=== PATIENT | female | born 1930 | race Caucasian/White ===

== ENCOUNTER 2019-03-26 10:51 | Inpatient (IN) | payer MEDICAID, MEDICARE, OTHER ==
[~2019-03-26] VITALS: Ht 165.1 cm; Wt 68.0 kg
[~2019-03-26 10:51] MED LIST: ACET325T9 PO; ACET600C3 PO; ASPI325T8 PO; BACL10TA PO; BISA10SU2 RC; CIPR500T94 PO; CLON1PAT TD; DABI150C PO; DIAZ5TAB4 PO; FURO-69 PO; GABA300C18 PO; GLIP5TAB10 PO; HYDR-2761 PO; INSU100C4 SQ; IPRA3AMP29 IH; LISI-338 PO; MAG1TAB.11 PO; MAGN400O7 PO; PANT40TA5 PO; POTA10TA31 PO; PRAV40TA2 PO; PRED-220 PO; SERT50TA8 PO; TRAM50TA PO
--- NOTE | 2019-03-26 12:03 | RAD ---
CT of the pelvis without contrast, 03/26/2019: HISTORY: Right hip pain, contractures limit radiographic evaluation Noncontrast scans were obtained with multiplanar reconstructions produced. The patient's left hip is contracted in a flexed position. There is mild associated lateral subluxation of the left femoral head relative to the left acetabulum, presumably chronic. No acute fracture is identified. There are moderate degenerative changes at both hip joints. There are also moderate degenerative changes in the lower lumbar spine and at both sacroiliac joints. Scattered arterial calcifications are present. The pelvic bowel loops are unremarkable. No pelvic mass or unusual fluid collection is seen. Minimal radiopacity along the dependent wall the urinary bladder may represent tiny bladder calculi. There is moderate bilateral subcutaneous edema. IMPRESSION: 1. Chronic findings as described above. 2. No acute bony abnormality is detected. PQRS Compliance Statement: One or more of the following individualized dose reduction techniques were utilized for this examination: 1. Automated exposure control 2. Adjustment of the mA and/or kV according to patient size 3. Use of iterative reconstruction technique Electronically signed by: Zac Montano MD (03/26/2019 12:00 PM) [facility]
--- NOTE | 2019-03-26 12:06 | RAD ---
Right knee, 3 views, 03/26/2019: HISTORY: Pain The imaging is compromised by difficulties in patient positioning. There is severe bony demineralization. There is a comminuted fracture of the distal femoral shaft. There is mild medial displacement and posterior angulation of the major distal fracture fragment. Degenerative changes are present the knee joint. Extensive arterial calcifications are present. IMPRESSION: 1. Demineralization. 2. Mildly displaced and angulated distal femoral fracture. Electronically signed by: Zac Montano MD (03/26/2019 12:04 PM) [facility]
--- NOTE | 2019-03-26 12:38 | RAD ---
CHEST AP ONLY Clinical Indication: Perioperative evaluation. Comparison: None. Findings: Patient is rotated. Atherosclerotic and tortuous, possibly ectatic thoracic aorta. There is cardiomegaly. No pulmonary vascular congestion. Lungs are clear. Mild biapical pleural parenchymal scarring. There is no pneumothorax. No pleural effusion is appreciated. No acute bone abnormality. IMPRESSION: No acute cardiopulmonary process. Electronically signed by: Eber Kirk MD (03/26/2019 12:35 PM) [id number]
--- NOTE | 2019-03-26 13:04 | PDOC1 ---
History and Physical Date of Admission Date of Admission DATE: 03/26/19 TIME: 13:03 Identification/Chief Complaint Chief Complaint Patient is a 88 year old FEMALE who presents with LEG PAIN [] Past Medical History Past Medical History Past Medical History Past Medical History Past Medical History: Anxiety, Depression, Diabetes-Type II, Hypertension Past Surgical History: Other Additional Past Surgical Histo: unknown Alcohol Use: None Drug Use: None FHX DIABETES Current Medications Current Medications Active Scripts Active Reported Tramadol Hcl 50 Mg Tablet 1 Tab PO TID Sertraline Hcl 50 Mg Tablet 150 Mg PO HS Prednisone 10 Mg Tablet 10 Mg PO DAILY Pravastatin Sodium 40 Mg Tablet 1 Tab PO DAILY Potassium Chloride 10 Meq Tab.er.prt 0.5 Tab PO DAILY Pantoprazole Sodium 40 Mg Tablet.dr 1 Tab PO DAILY Mintox Plus Tablet Chewable (Mag Hydrox/Al Hydrox/Simeth) 1 Each Tab.chew 2 Each PO Milk Of Magnesia (Magnesium Hydroxide) 400 Mg/5 Ml Oral.susp 30 Mg PO DAILY PRN Lisinopril 5 Mg Tablet 1 Tab PO DAILY Lasix (Furosemide) 20 Mg Tablet 0.5 Tab PO DAILY Novolog (Insulin Aspart) 100 Unit/1 Ml Cartridge 2-8 Unit SQ TIDWMEALHC Hydrocodone-Apap 5-325 (Hydrocodone Bit/Acetaminophen) 1 Each Tablet 1 Tab PO Q8HRS PRN Glipizide 5 Mg Tablet 1 Tab PO BID Gabapentin 300 Mg Capsule 1 Cap PO TID Iprat-Albut 0.5-3(2.5) Mg/3 Ml (Ipratropium/Albuterol Sulfate) 3 Ml Ampul.neb 3 Ml IH Q8HRS PRN Diazepam 5 Mg Tablet 2.5 Mg PO HS Pradaxa (Dabigatran Etexilate Mesylate) 150 Mg Capsule 1 Cap PO BID Clonidine Tts-1 (Clonidine) 1 Each Patch.tdwk 1 Patch TD WEEKLY Cipro (Ciprofloxacin Hcl) 500 Mg Tablet 1 Tab PO BID Bisacodyl 10 Mg Supp.rect 10 Mg RC PRN DAILY PRN Baclofen 10 Mg Tablet 1 Tab PO TID Aspirin 325 Mg Tablet 1 Tab PO DAILY F-Fmymkf-Z-Cysteine (Acetylcysteine) 600 Mg Capsule 1,200 Mg PO BID Tylenol (Acetaminophen) 325 Mg Tablet 1-2 Tab PO QID PRN Allergies Allergies: Coded Allergies: No Known Drug Allergies (Unverified , 03/10/15) ROS Review of System Review of Systems Review of Systems Constitutional: Denies fever or chills [] Eyes: Denies change in visual acuity, redness, or eye pain [] HENT: Denies nasal congestion or sore throat [] Respiratory: Denies cough or shortness of breath [] Cardiovascular: No additional information not addressed in HPI [] GI: Denies abdominal pain, nausea, vomiting, bloody stools or diarrhea [] : Denies dysuria or hematuria [] Musculoskeletal: Denies back pain or joint pain [] Integument: Denies rash or skin lesions [] Neurologic: Denies headache, focal weakness or sensory changes [] Endocrine: Denies polyuria or polydipsia [] 14 PT systems were reviewed and found to be within normal limits, LIMITED BY DEMENTIA , except as documented Physical Exam Physical Exam Physical Exam Physical Exam Constitutional: Well developed, well nourished, no acute distress, non-toxic appearance. [] HENT: Normocephalic, atraumatic, bilateral external ears normal, oropharynx moist, no oral exudates, nose normal. [] Eyes: PERRLA, EOMI, conjunctiva normal, no discharge. [] Neck: Normal range of motion, no tenderness, supple, no stridor. [] Cardiovascular:Heart rate regular rhythm, no murmur [] Lungs & Thorax: Bilateral breath sounds clear to auscultation [] Abdomen: Bowel sounds normal, soft, no tenderness, no masses, no pulsatile masses. [] Skin: Warm, dry, no erythema, no rash. [] Back: No tenderness, no CVA tenderness. [] Extremities: KNEE tenderness, no cyanosis, no clubbing, ROM intact, no edema. [] Neurologic: no focal deficits noted. [] Psychologic: A mood normal. [] General: mild distress HEENT: Atraumatic Lungs: Clear to auscultation Breasts: Not examined Rectal Exam: not examined Extremities: No cyanosis Neuro: Cranial nerves 3-12 NL Vitals Vitals Vital Signs Date Time Temp Pulse Resp B/P (MAP) Pulse Ox O2 Delivery O2 Flow Rate FiO2 03/26/19 11:02 97.9 55 16 191/77 (115) Room Air 94.0 97.9 Images Images Right knee, 3 views, 03/26/2019: HISTORY: Pain The imaging is compromised by difficulties in patient positioning. There is severe bony demineralization. There is a comminuted fracture of the distal femoral shaft. There is mild medial displacement and posterior angulation of the major distal fracture fragment. Degenerative changes are present the knee joint. Extensive arterial calcifications are present. IMPRESSION: 1. Demineralization. 2. Mildly displaced and angulated distal femoral fracture. Electronically signed by: Zac Montano MD (03/26/2019 12:04 PM) [facility] VTE Prophylaxis Ordered VTE Prophylaxis Devices: Yes VTE Pharmacological Prophylaxi: Yes Assessment/Plan Assessment/Plan IMPRESSION: 1. Demineralization. 2. Mildly displaced and angulated distal femoral fracture. PLAN ORTHO CONSULT PAIN CONTROL, BEDREST DVT PROPHYLAXIS NICOLASA FRANCO MD March 26, 2019 13:04
--- NOTE | 2019-03-26 13:06 | EKG ---
[facility] [address] [place] [address] Test Date: 2019-03-26 Test Time: 12:51:22 Pat Name: LAM BELL Department: Room: Gender: F Diversity Intern: : 1930 Requested By: PARUL TOUSSAINT Order Number: [id number] Reading MD: Measurements Intervals [place] Rate: 57 P: MT: QRS: 171 QRSD: 122 T: 28 QT: 456 QTc: 447 Interpretive Statements IRREGULAR RHYTHM, NO P-WAVE FOUND ABNORMAL RIGHT AXIS DEVIATION INCOMPLETE RIGHT BUNDLE BRANCH BLOCK CONSIDER RIGHT VENTRICULAR HYPERTROPHY T ABNORMALITY IN ANTEROSEPTAL LEADS ABNORMAL ECG RI6.01 Unconfirmed report No previous ECG available for comparison
--- NOTE | 2019-03-26 13:34 | PHYS DOC ---
Past Medical History Past Medical History: Anxiety, Depression, Diabetes-Type II, Hypertension Past Surgical History: Other Additional Past Surgical Histo: unknown Alcohol Use: None Drug Use: None Adult General Chief Complaint Chief Complaint: OTHER COMPLAINTS HPI HPI Patient is a 88 year old [f__sex] who presents with [] Review of Systems Review of Systems Constitutional: Denies fever or chills [] Eyes: Denies change in visual acuity, redness, or eye pain [] HENT: Denies nasal congestion or sore throat [] Respiratory: Denies cough or shortness of breath [] Cardiovascular: No additional information not addressed in HPI [] GI: Denies abdominal pain, nausea, vomiting, bloody stools or diarrhea [] : Denies dysuria or hematuria [] Musculoskeletal: Denies back pain or joint pain [] Integument: Denies rash or skin lesions [] Neurologic: Denies headache, focal weakness or sensory changes [] Endocrine: Denies polyuria or polydipsia [] All other systems were reviewed and found to be within normal limits, except as documented in this note. Current Medications Current Medications Current Medications Medications (Trade) Dose Ordered Sig/Dominik Start Time Stop Time Status Last Admin Dose Admin Dextrose (Dextrose 50%-Water Syringe) 12.5 gm PRN Q15MIN PRN 03/26/19 14:15 Fentanyl Citrate (Fentanyl 2ml Vial) 25 mcg PRN Q2HR PRN 03/26/19 13:45 Insulin Human Lispro (HumaLOG) 0-5 UNITS TIDWMEALS 03/26/19 17:00 Ondansetron HCl (Zofran) 4 mg PRN Q8HRS PRN 03/26/19 13:45 03/27/19 13:44 Allergies Allergies Allergies Coded Allergies Type Severity Reaction Last Updated Verified No Known Drug Allergies 03/10/15 No Physical Exam Physical Exam Constitutional: Well developed, well nourished, no acute distress, non-toxic appearance. [] HENT: Normocephalic, atraumatic, bilateral external ears normal, oropharynx moist, no oral exudates, nose normal. [] Eyes: PERRLA, EOMI, conjunctiva normal, no discharge. [] Neck: Normal range of motion, no tenderness, supple, no stridor. [] Cardiovascular:Heart rate regular rhythm, no murmur [] Lungs & Thorax: Bilateral breath sounds clear to auscultation [] Abdomen: Bowel sounds normal, soft, no tenderness, no masses, no pulsatile masses. [] Skin: Warm, dry, no erythema, no rash. [] Back: No tenderness, no CVA tenderness. [] Extremities: No tenderness, no cyanosis, no clubbing, ROM intact, no edema. [] Neurologic: Alert and oriented X 3, normal motor function, normal sensory function, no focal deficits noted. [] Psychologic: Affect normal, judgement normal, mood normal. [] Current Patient Data Vital Signs Vital Signs Date Time Temp Pulse Resp B/P (MAP) Pulse Ox O2 Delivery O2 Flow Rate FiO2 03/26/19 13:00 60 180/76 (110) 97 Room Air 03/26/19 11:02 97.9 16 94.0 97.9 Lab Values Laboratory Tests Test 03/26/19 13:30 White Blood Count 9.4 x10^3/uL (4.0-11.0) Red Blood Count 4.22 x10^6/uL (3.50-5.40) Hemoglobin 12.6 g/dL (12.0-15.5) Hematocrit 38.3 % (36.0-47.0) Mean Corpuscular Volume 91 fL (79-100) Mean Corpuscular Hemoglobin 30 pg (25-35) Mean Corpuscular Hemoglobin Concent 33 g/dL (31-37) Red Cell Distribution Width 16.8 % (11.5-14.5) H Platelet Count 130 x10^3/uL (140-400) L Neutrophils (%) (Auto) 87 % (31-73) H Lymphocytes (%) (Auto) 8 % (24-48) L Monocytes (%) (Auto) 3 % (0-9) Eosinophils (%) (Auto) 0 % (0-3) Basophils (%) (Auto) 1 % (0-3) Neutrophils # (Auto) 8.2 x10^3uL (1.8-7.7) H Lymphocytes # (Auto) 0.8 x10^3/uL (1.0-4.8) L Monocytes # (Auto) 0.3 x10^3/uL (0.0-1.1) Eosinophils # (Auto) 0.0 x10^3/uL (0.0-0.7) Basophils # (Auto) 0.0 x10^3/uL (0.0-0.2) Platelet Estimate Pending Prothrombin Time 14.3 SEC (11.7-14.0) H Prothrombin Time INR 1.1 (0.8-1.1) PTT 33 SEC (24-38) Sodium Level 142 mmol/L (136-145) Potassium Level 4.1 mmol/L (3.5-5.1) Chloride Level 105 mmol/L (98-107) Carbon Dioxide Level 27 mmol/L (21-32) Anion Gap 10 (6-14) Blood Urea Nitrogen 21 mg/dL (7-20) H Creatinine 0.7 mg/dL (0.6-1.0) Estimated GFR (Cockcroft-Gault) 78.8 BUN/Creatinine Ratio 30 (6-20) H Glucose Level 135 mg/dL (70-99) H Calcium Level 9.0 mg/dL (8.5-10.1) Magnesium Level 1.9 mg/dL (1.8-2.4) Total Bilirubin 0.6 mg/dL (0.2-1.0) Aspartate Amino Transferase (AST) 17 U/L (15-37) Alanine Aminotransferase (ALT) 19 U/L (14-59) Alkaline Phosphatase 71 U/L (46-116) Creatine Kinase 46 U/L (26-192) Creatine Kinase MB (Mass) 1.3 ng/mL (0.0-3.6) Creatine Kinase MB Relative Index % (0-4) Troponin I Quantitative < 0.017 ng/mL (0.000-0.055) Total Protein 7.6 g/dL (6.4-8.2) Albumin 3.2 g/dL (3.4-5.0) L Albumin/Globulin Ratio 0.7 (1.0-1.7) L Laboratory Tests 03/26/19 13:30 Laboratory Tests 03/26/19 13:30 EKG EKG @1251 Sinus bradycardia at 57bpm with baseline artifact, RBBB, NO ST elevation Radiology/Procedures Radiology/Procedures PROCEDURE: CT PELVIS WO CONTRAST CT of the pelvis without contrast, 03/26/2019: HISTORY: Right hip pain, contractures limit radiographic evaluation Noncontrast scans were obtained with multiplanar reconstructions produced. The patient's left hip is contracted in a flexed position. There is mild associated lateral subluxation of the left femoral head relative to the left acetabulum, presumably chronic. No acute fracture is identified. There are moderate degenerative changes at both hip joints. There are also moderate degenerative changes in the lower lumbar spine and at both sacroiliac joints. Scattered arterial calcifications are present. The pelvic bowel loops are unremarkable. No pelvic mass or unusual fluid collection is seen. Minimal radiopacity along the dependent wall the urinary bladder may represent tiny bladder calculi. There is moderate bilateral subcutaneous edema. IMPRESSION: 1. Chronic findings as described above. 2. No acute bony abnormality is detected. PQRS Compliance Statement: One or more of the following individualized dose reduction techniques were utilized for this examination: 1. Automated exposure control 2. Adjustment of the mA and/or kV according to patient size 3. Use of iterative reconstruction technique Electronically signed by: Zac Montano MD (03/26/2019 12:00 PM) [facility] PROCEDURE: KNEE RIGHT 3V Right knee, 3 views, 03/26/2019: HISTORY: Pain The imaging is compromised by difficulties in patient positioning. There is severe bony demineralization. There is a comminuted fracture of the distal femoral shaft. There is mild medial displacement and posterior angulation of the major distal fracture fragment. Degenerative changes are present the knee joint. Extensive arterial calcifications are present. IMPRESSION: 1. Demineralization. 2. Mildly displaced and angulated distal femoral fracture. Electronically signed by: Zac Montano MD (03/26/2019 12:04 PM) [facility] PROCEDURE: CHEST AP ONLY CHEST AP ONLY Clinical Indication: Perioperative evaluation. Comparison: None. Findings: Patient is rotated. Atherosclerotic and tortuous, possibly ectatic thoracic aorta. There is cardiomegaly. No pulmonary vascular congestion. Lungs are clear. Mild biapical pleural parenchymal scarring. There is no pneumothorax. No pleural effusion is appreciated. No acute bone abnormality. IMPRESSION: No acute cardiopulmonary process. Electronically signed by: Eber Kirk MD (03/26/2019 12:35 PM) [id number] Course & Med Decision Making Course & Med Decision Making Pertinent Labs and Imaging studies reviewed. (See chart for details) 1416- Discussed case with Dr. Sanders (orthopedics) regarding acute fracture. Given nonambulatory status of patient will plan to conservatively manage fracture. Dragon Disclaimer Dragon Disclaimer This electronic medical record was generated, in whole or in part, using a voice recognition dictation system. Departure Departure Impression: Primary Impression: Closed fracture of right distal femur Disposition: ADMITTED INPATIENT Admitting Physician: Hunter Gonzalez Condition: STABLE Referrals: MARK CLEMENT MD (PCP) Problem Qualifiers Primary Impression: Closed fracture of right distal femur Encounter type: initial encounter Fracture morphology: unspecified fracture morphology Qualified Codes: S72.401A - Unspecified fracture of lower end of right femur, initial encounter for closed fracture PARUL TOUSSAINT DO March 26, 2019 13:34
[2019-03-26] MEDS ORDERED: fentaNYL PF VIAL 100 MCG/2 ML VIAL IV PRN (13:45)
[2019-03-26] MEDS ORDERED: ONDANSETRON PF 4 MG/2 ML VIAL. IV PRN (13:45)
[2019-03-26 13:49] LABS: BASO % 1 % (0-3); EOS % 0 % (0-3); HEMATOCRIT 38.3 % (36.0-47.0); HEMOGLOBIN 12.6 g/dL (12.0-15.5); LYMPH # 0.8 x10^3/uL (1.0-4.8); LYMPH % 8 % (24-48); MEAN CORPUSCULAR HEMOGLOBIN 30 pg (25-35); MEAN CORPUSCULAR HGB CONC 33 g/dL (31-37); MEAN CORPUSCULAR VOLUME 91 fL (79-100); MONO # 0.3 x10^3/uL (0.0-1.1); MONO % 3 % (0-9); NEUT # 8.2 x10^3uL (1.8-7.7); NEUT % 87 % (31-73); PLATELET COUNT 130 x10^3/uL (140-400); RED BLOOD COUNT 4.22 x10^6/uL (3.50-5.40); RED CELL DISTRIBUTION WIDTH 16.8 % (11.5-14.5); WHITE BLOOD COUNT 9.4 x10^3/uL (4.0-11.0)
[2019-03-26 13:59] LABS: PROTHROMBIN TIME PATIENT 14.3 SEC (11.7-14.0)
[2019-03-26 14:00] LABS: CREATININE 0.7 mg/dL (0.6-1.0); GFR 78.8; POTASSIUM 4.1 mmol/L (3.5-5.1)
[2019-03-26 14:07] LABS: ALBUMIN 3.2 g/dL (3.4-5.0); ALBUMIN/GLOBULIN RATIO 0.7 (1.0-1.7); MAGNESIUM 1.9 mg/dL (1.8-2.4); TOTAL BILIRUBIN 0.6 mg/dL (0.2-1.0); TOTAL PROTEIN 7.6 g/dL (6.4-8.2)
[2019-03-26] MEDS ORDERED: DEXTROSE 50% 25 GM / 50ML DISP.SYRIN. IV PRN (14:15)
[2019-03-26 14:16] LABS: CREATINE KINASE 46 U/L (26-192)
[2019-03-26] MEDS: fentaNYL PF VIAL 100 MCG/2 ML VIAL IV PRN ×2 (15:30→18:39)
[2019-03-26] MEDS ORDERED: MORP100S3 PO (16:34)
[2019-03-26] MEDS ORDERED: ACET325T9 PR (16:34)
[2019-03-26] MEDS ORDERED: NYST1POW5 MC (16:34)
[2019-03-26] MEDS ORDERED: BISA-42 PR (16:34)
[2019-03-26] MEDS ORDERED: LORA2ORA7 PO (16:34)
[2019-03-26] MEDS ORDERED: ATRO2DRO3 PO (16:34)
[2019-03-26] MEDS ORDERED: ACET325T9 PO (16:34)
[2019-03-26] MEDS ORDERED: FENT1PAT21 TD (16:34)
[2019-03-26] MEDS ORDERED: DICL100G18 TP (16:34)
[2019-03-26] MEDS ORDERED: METH113C6 TP (16:34)
[2019-03-26] MEDS ORDERED: MORP20SY PO (16:34)
[2019-03-26] MEDS: INSULIN LISPRO 300 UNITS/3 ML INSULN.PEN. SQ SCH (16:52)
[2019-03-26] MEDS ORDERED: BISACODYL 5 MG TABLET.DR. PO PRN (18:15)
[2019-03-26] MEDS ORDERED: ACETAMINOPHEN 325 MG TABLET. PO PRN (18:15)
[2019-03-26] MEDS ORDERED: MAGNESIUM HYDROXIDE 2,400 MG/30 ML ORAL.SUSP. PO PRN ×2 (18:15→20:42)
[2019-03-26] MEDS ORDERED: DICLOFENAC SODIUM 1% TOPICAL GEL 100GM TUBE. TP PRN (18:15)
[2019-03-26] MEDS ORDERED: FENTANYL TD SCH (18:15)
[2019-03-26 18:34] LABS: % LYMPHS 5 % (24-48); % MONOS 3 % (0-10); % SEGS 92 % (35-66)
[2019-03-26 18:35] LABS: ANISOCYTOSIS SLIGHT; OVALOCYTES OCC; PLT ESTIMATE ADEQUATE (ADEQUATE)
--- NOTE | 2019-03-26 18:43 | NUR ---
Pt. placed on P500 bed.
[2019-03-26 19:00] VITALS: BP 153/77
--- NOTE | 2019-03-26 19:14 | NUR ---
Pt. came to hospital with Fentanyl patch dated as placed today to R ankle.
[2019-03-26] MEDS ORDERED: BISACODYL 10 MG SUPP.RECT. PR PRN (19:15)
[2019-03-26] MEDS ORDERED: ATROPINE 1% OPHTH SOLUTION 5ML BOTTLE. SL PRN ×2 (19:15→19:30)
[2019-03-26] MEDS ORDERED: MORPHINE SULFATE 20 MG/ML CONC SOLUTION. SL PRN (20:45)
[2019-03-26] MEDS ORDERED: NYSTATIN TOPICAL POWDER 15GM BOTTLE. TP PRN (21:00)
[2019-03-26] MEDS: diazePAM 5 MG TABLET PO SCH (21:20)
[2019-03-26] MEDS: ENOXAPARIN 30 MG/0.3 ML SYRINGE. SQ SCH (21:34)
[2019-03-26] MEDS: METHYL SALICYLATE/MENTHOL TOPICAL OINTMENT 29GM TUBE. TP SCH (21:34)
[2019-03-26] MEDS: MORPHINE SULFATE 20 MG/ML CONC SOLUTION. SL PRN (21:42)
[2019-03-26 22:46] VITALS: BP 162/76
[2019-03-27 03:00] VITALS: BP 143/61
[2019-03-27 07:00] VITALS: BP 133/52
[2019-03-27] MEDS: INSULIN LISPRO 300 UNITS/3 ML INSULN.PEN. SQ SCH ×3 (08:00→17:00)
[2019-03-27] MEDS: MORPHINE SULFATE 20 MG/ML CONC SOLUTION. SL PRN ×3 (08:47→23:18)
--- NOTE | 2019-03-27 10:09 | PDOC ---
PROGRESS NOTES History of Present Illness History of Present Illness VTE Prophylaxis Ordered VTE Prophylaxis Devices: Yes VTE Pharmacological Prophylaxi: Yes Assessment/Plan Assessment/Plan IMPRESSION: 1. Demineralization. 2. Mildly displaced and angulated distal femoral fracture. PLAN ORTHO CONSULT PAIN CONTROL, BEDREST DVT PROPHYLAXIS 03/27 Still in mod pain if moved Vitals Vitals Vital Signs Date Time Temp Pulse Resp B/P (MAP) Pulse Ox O2 Delivery O2 Flow Rate FiO2 03/27/19 08:47 Room Air 03/27/19 07:00 99.1 76 20 133/52 (79) 98 99.1 03/26/19 11:02 94.0 Physical Exam General: Cooperative, mild distress Lungs: Clear Abdomen: Normal bowel sounds, Soft Extremities: No cyanosis Skin: No significant lesion Labs LABS Laboratory Tests Test 03/26/19 13:30 03/26/19 16:38 03/26/19 21:19 03/27/19 07:33 White Blood Count 9.4 x10^3/uL (4.0-11.0) Red Blood Count 4.22 x10^6/uL (3.50-5.40) Hemoglobin 12.6 g/dL (12.0-15.5) Hematocrit 38.3 % (36.0-47.0) Mean Corpuscular Volume 91 fL (79-100) Mean Corpuscular Hemoglobin 30 pg (25-35) Mean Corpuscular Hemoglobin Concent 33 g/dL (31-37) Red Cell Distribution Width 16.8 % (11.5-14.5) Platelet Count 130 x10^3/uL (140-400) Neutrophils (%) (Auto) 87 % (31-73) Lymphocytes (%) (Auto) 8 % (24-48) Monocytes (%) (Auto) 3 % (0-9) Eosinophils (%) (Auto) 0 % (0-3) Basophils (%) (Auto) 1 % (0-3) Neutrophils # (Auto) 8.2 x10^3uL (1.8-7.7) Lymphocytes # (Auto) 0.8 x10^3/uL (1.0-4.8) Monocytes # (Auto) 0.3 x10^3/uL (0.0-1.1) Eosinophils # (Auto) 0.0 x10^3/uL (0.0-0.7) Basophils # (Auto) 0.0 x10^3/uL (0.0-0.2) Segmented Neutrophils % 92 % (35-66) Lymphocytes % 5 % (24-48) Monocytes % 3 % (0-10) Platelet Estimate Adequate (ADEQUATE) Anisocytosis Slight Ovalocytes Occ Prothrombin Time 14.3 SEC (11.7-14.0) Prothromb Time International Ratio 1.1 (0.8-1.1) Activated Partial Thromboplast Time 33 SEC (24-38) Sodium Level 142 mmol/L (136-145) Potassium Level 4.1 mmol/L (3.5-5.1) Chloride Level 105 mmol/L (98-107) Carbon Dioxide Level 27 mmol/L (21-32) Anion Gap 10 (6-14) Blood Urea Nitrogen 21 mg/dL (7-20) Creatinine 0.7 mg/dL (0.6-1.0) Estimated GFR (Cockcroft-Gault) 78.8 BUN/Creatinine Ratio 30 (6-20) Glucose Level 135 mg/dL (70-99) Calcium Level 9.0 mg/dL (8.5-10.1) Magnesium Level 1.9 mg/dL (1.8-2.4) Total Bilirubin 0.6 mg/dL (0.2-1.0) Aspartate Amino Transf (AST/SGOT) 17 U/L (15-37) Alanine Aminotransferase (ALT/SGPT) 19 U/L (14-59) Alkaline Phosphatase 71 U/L (46-116) Creatine Kinase 46 U/L (26-192) Creatine Kinase MB (Mass) 1.3 ng/mL (0.0-3.6) Creatine Kinase MB Relative Index % (0-4) Troponin I Quantitative < 0.017 ng/mL (0.000-0.055) Total Protein 7.6 g/dL (6.4-8.2) Albumin 3.2 g/dL (3.4-5.0) Albumin/Globulin Ratio 0.7 (1.0-1.7) Glucose (Fingerstick) 135 mg/dL (70-99) 240 mg/dL (70-99) 130 mg/dL (70-99) Assessment and Plan Assessmemt and Plan Problems Medical Problems: (1) Closed fracture of right distal femur Status: Acute Comment Review of Relevant I have reviewed the following items malaika (where applicable) has been applied. Labs Laboratory Tests Test 03/26/19 13:30 03/26/19 16:38 03/26/19 21:19 03/27/19 07:33 White Blood Count 9.4 x10^3/uL (4.0-11.0) Red Blood Count 4.22 x10^6/uL (3.50-5.40) Hemoglobin 12.6 g/dL (12.0-15.5) Hematocrit 38.3 % (36.0-47.0) Mean Corpuscular Volume 91 fL (79-100) Mean Corpuscular Hemoglobin 30 pg (25-35) Mean Corpuscular Hemoglobin Concent 33 g/dL (31-37) Red Cell Distribution Width 16.8 % (11.5-14.5) Platelet Count 130 x10^3/uL (140-400) Neutrophils (%) (Auto) 87 % (31-73) Lymphocytes (%) (Auto) 8 % (24-48) Monocytes (%) (Auto) 3 % (0-9) Eosinophils (%) (Auto) 0 % (0-3) Basophils (%) (Auto) 1 % (0-3) Neutrophils # (Auto) 8.2 x10^3uL (1.8-7.7) Lymphocytes # (Auto) 0.8 x10^3/uL (1.0-4.8) Monocytes # (Auto) 0.3 x10^3/uL (0.0-1.1) Eosinophils # (Auto) 0.0 x10^3/uL (0.0-0.7) Basophils # (Auto) 0.0 x10^3/uL (0.0-0.2) Segmented Neutrophils % 92 % (35-66) Lymphocytes % 5 % (24-48) Monocytes % 3 % (0-10) Platelet Estimate Adequate (ADEQUATE) Anisocytosis Slight Ovalocytes Occ Prothrombin Time 14.3 SEC (11.7-14.0) Prothromb Time International Ratio 1.1 (0.8-1.1) Activated Partial Thromboplast Time 33 SEC (24-38) Sodium Level 142 mmol/L (136-145) Potassium Level 4.1 mmol/L (3.5-5.1) Chloride Level 105 mmol/L (98-107) Carbon Dioxide Level 27 mmol/L (21-32) Anion Gap 10 (6-14) Blood Urea Nitrogen 21 mg/dL (7-20) Creatinine 0.7 mg/dL (0.6-1.0) Estimated GFR (Cockcroft-Gault) 78.8 BUN/Creatinine Ratio 30 (6-20) Glucose Level 135 mg/dL (70-99) Calcium Level 9.0 mg/dL (8.5-10.1) Magnesium Level 1.9 mg/dL (1.8-2.4) Total Bilirubin 0.6 mg/dL (0.2-1.0) Aspartate Amino Transf (AST/SGOT) 17 U/L (15-37) Alanine Aminotransferase (ALT/SGPT) 19 U/L (14-59) Alkaline Phosphatase 71 U/L (46-116) Creatine Kinase 46 U/L (26-192) Creatine Kinase MB (Mass) 1.3 ng/mL (0.0-3.6) Creatine Kinase MB Relative Index % (0-4) Troponin I Quantitative < 0.017 ng/mL (0.000-0.055) Total Protein 7.6 g/dL (6.4-8.2) Albumin 3.2 g/dL (3.4-5.0) Albumin/Globulin Ratio 0.7 (1.0-1.7) Glucose (Fingerstick) 135 mg/dL (70-99) 240 mg/dL (70-99) 130 mg/dL (70-99) Laboratory Tests Test 03/26/19 13:30 03/26/19 16:38 03/26/19 21:19 03/27/19 07:33 White Blood Count 9.4 x10^3/uL (4.0-11.0) Red Blood Count 4.22 x10^6/uL (3.50-5.40) Hemoglobin 12.6 g/dL (12.0-15.5) Hematocrit 38.3 % (36.0-47.0) Mean Corpuscular Volume 91 fL (79-100) Mean Corpuscular Hemoglobin 30 pg (25-35) Mean Corpuscular Hemoglobin Concent 33 g/dL (31-37) Red Cell Distribution Width 16.8 % (11.5-14.5) Platelet Count 130 x10^3/uL (140-400) Neutrophils (%) (Auto) 87 % (31-73) Lymphocytes (%) (Auto) 8 % (24-48) Monocytes (%) (Auto) 3 % (0-9) Eosinophils (%) (Auto) 0 % (0-3) Basophils (%) (Auto) 1 % (0-3) Neutrophils # (Auto) 8.2 x10^3uL (1.8-7.7) Lymphocytes # (Auto) 0.8 x10^3/uL (1.0-4.8) Monocytes # (Auto) 0.3 x10^3/uL (0.0-1.1) Eosinophils # (Auto) 0.0 x10^3/uL (0.0-0.7) Basophils # (Auto) 0.0 x10^3/uL (0.0-0.2) Segmented Neutrophils % 92 % (35-66) Lymphocytes % 5 % (24-48) Monocytes % 3 % (0-10) Platelet Estimate Adequate (ADEQUATE) Anisocytosis Slight Ovalocytes Occ Prothrombin Time 14.3 SEC (11.7-14.0) Prothromb Time International Ratio 1.1 (0.8-1.1) Activated Partial Thromboplast Time 33 SEC (24-38) Sodium Level 142 mmol/L (136-145) Potassium Level 4.1 mmol/L (3.5-5.1) Chloride Level 105 mmol/L (98-107) Carbon Dioxide Level 27 mmol/L (21-32) Anion Gap 10 (6-14) Blood Urea Nitrogen 21 mg/dL (7-20) Creatinine 0.7 mg/dL (0.6-1.0) Estimated GFR (Cockcroft-Gault) 78.8 BUN/Creatinine Ratio 30 (6-20) Glucose Level 135 mg/dL (70-99) Calcium Level 9.0 mg/dL (8.5-10.1) Magnesium Level 1.9 mg/dL (1.8-2.4) Total Bilirubin 0.6 mg/dL (0.2-1.0) Aspartate Amino Transf (AST/SGOT) 17 U/L (15-37) Alanine Aminotransferase (ALT/SGPT) 19 U/L (14-59) Alkaline Phosphatase 71 U/L (46-116) Creatine Kinase 46 U/L (26-192) Creatine Kinase MB (Mass) 1.3 ng/mL (0.0-3.6) Creatine Kinase MB Relative Index % (0-4) Troponin I Quantitative < 0.017 ng/mL (0.000-0.055) Total Protein 7.6 g/dL (6.4-8.2) Albumin 3.2 g/dL (3.4-5.0) Albumin/Globulin Ratio 0.7 (1.0-1.7) Glucose (Fingerstick) 135 mg/dL (70-99) 240 mg/dL (70-99) 130 mg/dL (70-99) Medications Current Medications Ondansetron HCl (Zofran) 4 mg PRN Q8HRS PRN IV NAUSEA/VOMITING; Start 03/26/19 at 13:45; Stop 03/27/19 at 13:44 Fentanyl Citrate (Fentanyl 2ml Vial) 25 mcg Q2HR PRN IV PAIN; Start 03/26/19 at 13:45; Stop 03/26/19 at 13:45; Status DC Fentanyl Citrate (Fentanyl 2ml Vial) 25 mcg PRN Q2HR PRN IV PAIN Last administered on 03/26/19at 18:39; Start 03/26/19 at 13:45 Insulin Human Lispro (HumaLOG) 0-5 UNITS TIDWMEALS SQ ; Start 03/26/19 at 17:00 Dextrose (Dextrose 50%-Water Syringe) 12.5 gm PRN Q15MIN PRN IV SEE COMMENTS; Start 03/26/19 at 14:15 Acetaminophen (Tylenol) 650 mg PRN Q4HRS PRN PO mild pain/temp; Start 03/26/19 at 18:15 Acetaminophen (Tylenol) 650 mg PRN Q4HRS PRN PO FEVER; Start 03/26/19 at 18:15; Status UNV Bisacodyl (Dulcolax Tab) 5 mg PRN DAILY PRN PO CONSTIPATION; Start 03/26/19 at 18:15 Diazepam (Valium) 2.5 mg HS PO Last administered on 03/26/19at 21:20; Start 03/26/19 at 21:00 Diclofenac Sodium (Voltaren) 2 scottie PRN Q4HRS PRN TP PAIN; Start 03/26/19 at 18:15 Magnesium Hydroxide (Milk Of Magnesia) 30 mg PRN DAILY PRN PO CONSTIPATION; Start 03/26/19 at 18:15; Stop 03/26/19 at 20:42; Status DC Atropine Sulfate (Isopto Atropine) 1 drop PRN Q4HRS PRN SL SECRETIONS; Start 03/26/19 at 19:15; Status Cancel Bisacodyl (Dulcolax Supp) 10 mg PRN DAILY PRN AL CONSTIPATION; Start 03/26/19 at 19:15 Non-Formulary Medication (Fentanyl (FENTANYL 100mcg/ hr)) 1 patch Q72H TD ; Start 03/26/19 at 18:15; Stop 03/26/19 at 20:42; Status DC Lorazepam (Ativan Intensol) 0.5 mg PRN Q4HRS PRN SL ANXIETY / AGITATION; Start 03/26/19 at 19:15 Multi-Ingredient Ointment (Analgesic [place]) 1 scottie QHS TP Last administered on 03/26/19at 21:34; Start 03/26/19 at 21:00 Morphine Sulfate (Roxanol Conc) 5 mg PRN Q30MIN PRN SL MODERATE PAIN; Start 03/26/19 at 20:45 Morphine Sulfate (Roxanol Conc) 10 mg PRN Q30MIN PRN SL SEVERE PAIN Last administered on 03/27/19at 08:47; Start 03/26/19 at 20:45 Nystatin (Nystop) 1 scottie PRN Q8HRS PRN TP REDNESS UNDER ABDOMINAL FOLDS; Start 03/26/19 at 21:00 Enoxaparin Sodium (Lovenox 30mg Syringe) 30 mg Q24H SQ Last administered on 03/26/19at 21:34; Start 03/26/19 at 19:00 Fentanyl (Duragesic 100mcg/Hr Patch) 1 patch Q3DAYS TD ; Start 03/29/19 at 09:00 Atropine Sulfate (Isopto Atropine) 1 drop PRN Q4HRS PRN SL SECRETIONS; Start 03/26/19 at 19:30 Magnesium Hydroxide (Milk Of Magnesia) 2,400 mg PRN DAILY PRN PO CONSTIPATION; Start 03/26/19 at 20:42 Active Scripts Active Reported Morphine Sulfate 20 Mg/1 Ml Syringe 1 Mg PO PRN Q30MIN PRN Voltaren (Diclofenac Sodium) 100 Gm Gel..gram. 2 Gm TP PRN Q4HRS PRN Nystatin 1 Each Powder.ea. 1 Each MC PRN Q8HRS PRN Morphine Sulfate 100 Mg/5 Ml Solution 0.5 Mg PO PRN Q30MIN PRN Muscle Rub Cream (Methyl Salicylate/Menthol) 113 Gm Cream..g. 113 Gm TP HS Lorazepam Intensol (Lorazepam) 2 Mg/1 Ml Oral.conc 0.5 Mg PO PRN Q4HRS PRN FENTANYL 100mcg/hr (Fentanyl) 1 Each Patch.td72 1 Patch TD Q72H Dulcolax (Bisacodyl) 5 Mg Tablet.dr 5 Mg AL PRN DAILY PRN Atropine Sulfate 2 Ml Drops 2 Ml PO PRN Q4HRS PRN Tylenol (Acetaminophen) 325 Mg Tablet 650 Mg PO PRN Q4HRS PRN Tylenol (Acetaminophen) 325 Mg Tablet 650 Mg AL PRN Q4HRS PRN Milk Of Magnesia (Magnesium Hydroxide) 400 Mg/5 Ml Oral.susp 30 Mg PO DAILY PRN Diazepam 5 Mg Tablet 2.5 Mg PO HS Bisacodyl 10 Mg Supp.rect 10 Mg RC PRN DAILY PRN Vitals/I & O Vital Sign - Last 24 Hours 03/26/19 03/26/19 03/26/19 03/26/19 11:02 11:30 12:00 12:30 Temp 97.9 97.9 Pulse 55 56 58 66 Resp 16 B/P (MAP) 191/77 (115) 202/75 (117) 180/81 (114) 181/99 (126) Pulse Ox 96 O2 Delivery Room Air Room Air Room Air O2 Flow Rate 94.0 03/26/19 03/26/19 03/26/19 03/26/19 13:00 14:00 14:30 15:15 Pulse 60 64 64 B/P (MAP) 180/76 (110) 156/82 (106) 168/78 (108) Pulse Ox 97 96 96 O2 Delivery Room Air Room Air Room Air Room Air 03/26/19 03/26/19 03/26/19 03/26/19 15:30 18:39 19:00 19:09 Temp 98.5 98.5 Pulse 91 Resp 20 20 B/P (MAP) 153/77 (102) Pulse Ox 95 O2 Delivery Room Air Room Air Room Air Room Air 03/26/19 03/26/19 03/26/19 03/26/19 20:00 21:42 22:42 22:46 Temp 98.3 98.3 Pulse 86 Resp 20 20 20 B/P (MAP) 162/76 (104) Pulse Ox 98 O2 Delivery Room Air Room Air Room Air Room Air 03/27/19 03/27/19 03/27/19 03/27/19 03:00 07:00 08:00 08:47 Temp 99.3 99.1 99.3 99.1 Pulse 77 76 Resp 20 20 B/P (MAP) 143/61 (88) 133/52 (79) Pulse Ox 95 98 O2 Delivery Room Air Room Air Room Air Room Air Intake and Output 03/26/19 03/26/19 03/27/19 15:00 23:00 07:00 Intake Total 120 ml Output Total 1 ml 100 ml Balance 119 ml -100 ml NICOLASA FRANCO MD March 27, 2019 10:09
[2019-03-27 11:00] VITALS: BP 114/54
[2019-03-27 15:00] VITALS: BP 121/44
[2019-03-27] MEDS: ENOXAPARIN 30 MG/0.3 ML SYRINGE. SQ SCH (18:06)
[2019-03-27 19:00] VITALS: BP 131/51
[2019-03-27] MEDS: diazePAM 5 MG TABLET PO SCH (20:55)
[2019-03-27] MEDS: ACETAMINOPHEN 325 MG TABLET. PO PRN (20:56)
[2019-03-27] MEDS: METHYL SALICYLATE/MENTHOL TOPICAL OINTMENT 29GM TUBE. TP SCH (20:57)
[2019-03-27 23:00] VITALS: BP 118/48
[2019-03-28 03:00] VITALS: BP 116/43
[2019-03-28] MEDS: MORPHINE SULFATE 20 MG/ML CONC SOLUTION. SL PRN ×6 (05:53→22:53)
[2019-03-28 07:00] VITALS: BP 124/52
[2019-03-28 07:05] LABS: BASO # 0.1 x10^3/uL (0.0-0.2); BASO % 1 % (0-3); EOS # 0.1 x10^3/uL (0.0-0.7); EOS % 1 % (0-3); HEMATOCRIT 25.1 % (36.0-47.0); HEMOGLOBIN 8.3 g/dL (12.0-15.5); LYMPH % 22 % (24-48); MEAN CORPUSCULAR HEMOGLOBIN 30 pg (25-35); MEAN CORPUSCULAR HGB CONC 33 g/dL (31-37); MEAN CORPUSCULAR VOLUME 91 fL (79-100); MONO # 0.9 x10^3/uL (0.0-1.1); MONO % 10 % (0-9); NEUT # 5.9 x10^3uL (1.8-7.7); NEUT % 66 % (31-73); PLATELET COUNT 99 x10^3/uL (140-400); RED BLOOD COUNT 2.76 x10^6/uL (3.50-5.40); RED CELL DISTRIBUTION WIDTH 16.6 % (11.5-14.5); WHITE BLOOD COUNT 8.9 x10^3/uL (4.0-11.0)
[2019-03-28 07:21] LABS: CALCIUM 8.6 mg/dL (8.5-10.1); GFR 52.2; POTASSIUM 3.9 mmol/L (3.5-5.1)
[2019-03-28] MEDS: INSULIN LISPRO 300 UNITS/3 ML INSULN.PEN. SQ SCH ×3 (08:00→17:00)
[2019-03-28 11:00] VITALS: BP 108/42
--- NOTE | 2019-03-28 11:48 | PDOC ---
PROGRESS NOTES History of Present Illness History of Present Illness VTE Prophylaxis Ordered VTE Prophylaxis Devices: Yes VTE Pharmacological Prophylaxi: Yes Assessment/Plan Assessment/Plan IMPRESSION: 1. Demineralization. 2. Mildly displaced and angulated distal femoral fracture. 3. Anemia, probably dilutional under hospice care to [facility] when they can accept over weekend PLAN ORTHO CONSULT, nooperative fx PAIN CONTROL, BEDREST DVT PROPHYLAXIS 03/27 and 03/28 Still in mod pain if moved, nonambulatory prob not an operative candidate d/w RN 27 min pt exam, chart review, > 50% of time spent with exam, chart review, pt care coordination Vitals Vitals Vital Signs Date Time Temp Pulse Resp B/P (MAP) Pulse Ox O2 Delivery O2 Flow Rate FiO2 03/28/19 11:00 97.9 72 17 108/42 (64) 98 Room Air 97.9 Physical Exam General: Cooperative, mild distress Lungs: Clear Abdomen: Normal bowel sounds, Soft, No tenderness Extremities: No cyanosis Skin: No significant lesion Labs LABS Right knee, 3 views, 03/26/2019: HISTORY: Pain The imaging is compromised by difficulties in patient positioning. There is severe bony demineralization. There is a comminuted fracture of the distal femoral shaft. There is mild medial displacement and posterior angulation of the major distal fracture fragment. Degenerative changes are present the knee joint. Extensive arterial calcifications are present. IMPRESSION: 1. Demineralization. 2. Mildly displaced and angulated distal femoral fracture. Electronically signed by: Zca Montano MD (03/26/2019 12:04 PM) [facility] Laboratory Tests Test 03/27/19 16:43 03/27/19 20:53 03/28/19 05:55 03/28/19 07:10 Glucose (Fingerstick) 140 mg/dL (70-99) 158 mg/dL (70-99) 114 mg/dL (70-99) White Blood Count 8.9 x10^3/uL (4.0-11.0) Red Blood Count 2.76 x10^6/uL (3.50-5.40) Hemoglobin 8.3 g/dL (12.0-15.5) Hematocrit 25.1 % (36.0-47.0) Mean Corpuscular Volume 91 fL (79-100) Mean Corpuscular Hemoglobin 30 pg (25-35) Mean Corpuscular Hemoglobin Concent 33 g/dL (31-37) Red Cell Distribution Width 16.6 % (11.5-14.5) Platelet Count 99 x10^3/uL (140-400) Neutrophils (%) (Auto) 66 % (31-73) Lymphocytes (%) (Auto) 22 % (24-48) Monocytes (%) (Auto) 10 % (0-9) Eosinophils (%) (Auto) 1 % (0-3) Basophils (%) (Auto) 1 % (0-3) Neutrophils # (Auto) 5.9 x10^3uL (1.8-7.7) Lymphocytes # (Auto) 2.0 x10^3/uL (1.0-4.8) Monocytes # (Auto) 0.9 x10^3/uL (0.0-1.1) Eosinophils # (Auto) 0.1 x10^3/uL (0.0-0.7) Basophils # (Auto) 0.1 x10^3/uL (0.0-0.2) Sodium Level 144 mmol/L (136-145) Potassium Level 3.9 mmol/L (3.5-5.1) Chloride Level 107 mmol/L (98-107) Carbon Dioxide Level 27 mmol/L (21-32) Anion Gap 10 (6-14) Blood Urea Nitrogen 36 mg/dL (7-20) Creatinine 1.0 mg/dL (0.6-1.0) Estimated GFR (Cockcroft-Gault) 52.2 Glucose Level 111 mg/dL (70-99) Calcium Level 8.6 mg/dL (8.5-10.1) Test 03/28/19 11:03 Glucose (Fingerstick) 95 mg/dL (70-99) Assessment and Plan Assessmemt and Plan Problems Medical Problems: (1) Closed fracture of right distal femur Status: Acute Past Medical History Past Medical History Past Medical History: Anxiety, Depression, Diabetes-Type II, Hypertension Past Surgical History: Other Additional Past Surgical Histo: unknown Alcohol Use: None Drug Use: None Comment Review of Relevant I have reviewed the following items malaika (where applicable) has been applied. Labs Laboratory Tests Test 03/26/19 13:30 03/26/19 16:38 03/26/19 16:45 03/26/19 21:19 White Blood Count 9.4 x10^3/uL (4.0-11.0) Red Blood Count 4.22 x10^6/uL (3.50-5.40) Hemoglobin 12.6 g/dL (12.0-15.5) Hematocrit 38.3 % (36.0-47.0) Mean Corpuscular Volume 91 fL (79-100) Mean Corpuscular Hemoglobin 30 pg (25-35) Mean Corpuscular Hemoglobin Concent 33 g/dL (31-37) Red Cell Distribution Width 16.8 % (11.5-14.5) Platelet Count 130 x10^3/uL (140-400) Neutrophils (%) (Auto) 87 % (31-73) Lymphocytes (%) (Auto) 8 % (24-48) Monocytes (%) (Auto) 3 % (0-9) Eosinophils (%) (Auto) 0 % (0-3) Basophils (%) (Auto) 1 % (0-3) Neutrophils # (Auto) 8.2 x10^3uL (1.8-7.7) Lymphocytes # (Auto) 0.8 x10^3/uL (1.0-4.8) Monocytes # (Auto) 0.3 x10^3/uL (0.0-1.1) Eosinophils # (Auto) 0.0 x10^3/uL (0.0-0.7) Basophils # (Auto) 0.0 x10^3/uL (0.0-0.2) Segmented Neutrophils % 92 % (35-66) Lymphocytes % 5 % (24-48) Monocytes % 3 % (0-10) Platelet Estimate Adequate (ADEQUATE) Anisocytosis Slight Ovalocytes Occ Prothrombin Time 14.3 SEC (11.7-14.0) Prothromb Time International Ratio 1.1 (0.8-1.1) Activated Partial Thromboplast Time 33 SEC (24-38) Sodium Level 142 mmol/L (136-145) Potassium Level 4.1 mmol/L (3.5-5.1) Chloride Level 105 mmol/L (98-107) Carbon Dioxide Level 27 mmol/L (21-32) Anion Gap 10 (6-14) Blood Urea Nitrogen 21 mg/dL (7-20) Creatinine 0.7 mg/dL (0.6-1.0) Estimated GFR (Cockcroft-Gault) 78.8 BUN/Creatinine Ratio 30 (6-20) Glucose Level 135 mg/dL (70-99) Calcium Level 9.0 mg/dL (8.5-10.1) Magnesium Level 1.9 mg/dL (1.8-2.4) Total Bilirubin 0.6 mg/dL (0.2-1.0) Aspartate Amino Transf (AST/SGOT) 17 U/L (15-37) Alanine Aminotransferase (ALT/SGPT) 19 U/L (14-59) Alkaline Phosphatase 71 U/L (46-116) Creatine Kinase 46 U/L (26-192) Creatine Kinase MB (Mass) 1.3 ng/mL (0.0-3.6) Creatine Kinase MB Relative Index % (0-4) Troponin I Quantitative < 0.017 ng/mL (0.000-0.055) Total Protein 7.6 g/dL (6.4-8.2) Albumin 3.2 g/dL (3.4-5.0) Albumin/Globulin Ratio 0.7 (1.0-1.7) Glucose (Fingerstick) 135 mg/dL (70-99) 240 mg/dL (70-99) Nasal Screen MRSA (PCR) Negative (Negative) Test 03/27/19 07:33 03/27/19 11:38 03/27/19 16:43 03/27/19 20:53 Glucose (Fingerstick) 130 mg/dL (70-99) 136 mg/dL (70-99) 140 mg/dL (70-99) 158 mg/dL (70-99) Test 03/28/19 05:55 03/28/19 07:10 03/28/19 11:03 White Blood Count 8.9 x10^3/uL (4.0-11.0) Red Blood Count 2.76 x10^6/uL (3.50-5.40) Hemoglobin 8.3 g/dL (12.0-15.5) Hematocrit 25.1 % (36.0-47.0) Mean Corpuscular Volume 91 fL (79-100) Mean Corpuscular Hemoglobin 30 pg (25-35) Mean Corpuscular Hemoglobin Concent 33 g/dL (31-37) Red Cell Distribution Width 16.6 % (11.5-14.5) Platelet Count 99 x10^3/uL (140-400) Neutrophils (%) (Auto) 66 % (31-73) Lymphocytes (%) (Auto) 22 % (24-48) Monocytes (%) (Auto) 10 % (0-9) Eosinophils (%) (Auto) 1 % (0-3) Basophils (%) (Auto) 1 % (0-3) Neutrophils # (Auto) 5.9 x10^3uL (1.8-7.7) Lymphocytes # (Auto) 2.0 x10^3/uL (1.0-4.8) Monocytes # (Auto) 0.9 x10^3/uL (0.0-1.1) Eosinophils # (Auto) 0.1 x10^3/uL (0.0-0.7) Basophils # (Auto) 0.1 x10^3/uL (0.0-0.2) Sodium Level 144 mmol/L (136-145) Potassium Level 3.9 mmol/L (3.5-5.1) Chloride Level 107 mmol/L (98-107) Carbon Dioxide Level 27 mmol/L (21-32) Anion Gap 10 (6-14) Blood Urea Nitrogen 36 mg/dL (7-20) Creatinine 1.0 mg/dL (0.6-1.0) Estimated GFR (Cockcroft-Gault) 52.2 Glucose Level 111 mg/dL (70-99) Calcium Level 8.6 mg/dL (8.5-10.1) Glucose (Fingerstick) 114 mg/dL (70-99) 95 mg/dL (70-99) Laboratory Tests Test 03/27/19 16:43 03/27/19 20:53 03/28/19 05:55 03/28/19 07:10 Glucose (Fingerstick) 140 mg/dL (70-99) 158 mg/dL (70-99) 114 mg/dL (70-99) White Blood Count 8.9 x10^3/uL (4.0-11.0) Red Blood Count 2.76 x10^6/uL (3.50-5.40) Hemoglobin 8.3 g/dL (12.0-15.5) Hematocrit 25.1 % (36.0-47.0) Mean Corpuscular Volume 91 fL (79-100) Mean Corpuscular Hemoglobin 30 pg (25-35) Mean Corpuscular Hemoglobin Concent 33 g/dL (31-37) Red Cell Distribution Width 16.6 % (11.5-14.5) Platelet Count 99 x10^3/uL (140-400) Neutrophils (%) (Auto) 66 % (31-73) Lymphocytes (%) (Auto) 22 % (24-48) Monocytes (%) (Auto) 10 % (0-9) Eosinophils (%) (Auto) 1 % (0-3) Basophils (%) (Auto) 1 % (0-3) Neutrophils # (Auto) 5.9 x10^3uL (1.8-7.7) Lymphocytes # (Auto) 2.0 x10^3/uL (1.0-4.8) Monocytes # (Auto) 0.9 x10^3/uL (0.0-1.1) Eosinophils # (Auto) 0.1 x10^3/uL (0.0-0.7) Basophils # (Auto) 0.1 x10^3/uL (0.0-0.2) Sodium Level 144 mmol/L (136-145) Potassium Level 3.9 mmol/L (3.5-5.1) Chloride Level 107 mmol/L (98-107) Carbon Dioxide Level 27 mmol/L (21-32) Anion Gap 10 (6-14) Blood Urea Nitrogen 36 mg/dL (7-20) Creatinine 1.0 mg/dL (0.6-1.0) Estimated GFR (Cockcroft-Gault) 52.2 Glucose Level 111 mg/dL (70-99) Calcium Level 8.6 mg/dL (8.5-10.1) Test 03/28/19 11:03 Glucose (Fingerstick) 95 mg/dL (70-99) Medications Current Medications Ondansetron HCl (Zofran) 4 mg PRN Q8HRS PRN IV NAUSEA/VOMITING; Start 03/26/19 at 13:45; Stop 03/27/19 at 13:44; Status DC Fentanyl Citrate (Fentanyl 2ml Vial) 25 mcg Q2HR PRN IV PAIN; Start 03/26/19 at 13:45; Stop 03/26/19 at 13:45; Status DC Fentanyl Citrate (Fentanyl 2ml Vial) 25 mcg PRN Q2HR PRN IV PAIN Last administered on 03/26/19at 18:39; Start 03/26/19 at 13:45 Insulin Human Lispro (HumaLOG) 0-5 UNITS TIDWMEALS SQ ; Start 03/26/19 at 17:00 Dextrose (Dextrose 50%-Water Syringe) 12.5 gm PRN Q15MIN PRN IV SEE COMMENTS; Start 03/26/19 at 14:15 Acetaminophen (Tylenol) 650 mg PRN Q4HRS PRN PO mild pain/temp Last administered on 03/27/19at 20:56; Start 03/26/19 at 18:15 Acetaminophen (Tylenol) 650 mg PRN Q4HRS PRN PO FEVER; Start 03/26/19 at 18:15; Status UNV Bisacodyl (Dulcolax Tab) 5 mg PRN DAILY PRN PO CONSTIPATION; Start 03/26/19 at 18:15 Diazepam (Valium) 2.5 mg HS PO Last administered on 03/27/19at 20:55; Start 03/26/19 at 21:00 Diclofenac Sodium (Voltaren) 2 scottie PRN Q4HRS PRN TP PAIN; Start 03/26/19 at 18:15 Magnesium Hydroxide (Milk Of Magnesia) 30 mg PRN DAILY PRN PO CONSTIPATION; Start 03/26/19 at 18:15; Stop 03/26/19 at 20:42; Status DC Atropine Sulfate (Isopto Atropine) 1 drop PRN Q4HRS PRN SL SECRETIONS; Start 03/26/19 at 19:15; Status Cancel Bisacodyl (Dulcolax Supp) 10 mg PRN DAILY PRN CA CONSTIPATION; Start 03/26/19 at 19:15 Non-Formulary Medication (Fentanyl (FENTANYL 100mcg/ hr)) 1 patch Q72H TD ; Start 03/26/19 at 18:15; Stop 03/26/19 at 20:42; Status DC Lorazepam (Ativan Intensol) 0.5 mg PRN Q4HRS PRN SL ANXIETY / AGITATION; Start 03/26/19 at 19:15 Multi-Ingredient Ointment (Analgesic Prewitt) 1 scottie QHS TP Last administered on 03/27/19at 20:57; Start 03/26/19 at 21:00 Morphine Sulfate (Roxanol Conc) 5 mg PRN Q30MIN PRN SL MODERATE PAIN; Start 03/26/19 at 20:45 Morphine Sulfate (Roxanol Conc) 10 mg PRN Q30MIN PRN SL SEVERE PAIN Last administered on 03/28/19at 09:45; Start 03/26/19 at 20:45 Nystatin (Nystop) 1 scottie PRN Q8HRS PRN TP REDNESS UNDER ABDOMINAL FOLDS; Start 03/26/19 at 21:00 Enoxaparin Sodium (Lovenox 30mg Syringe) 30 mg Q24H SQ Last administered on 03/27/19at 18:06; Start 03/26/19 at 19:00 Fentanyl (Duragesic 100mcg/Hr Patch) 1 patch Q3DAYS TD ; Start 03/29/19 at 09:00 Atropine Sulfate (Isopto Atropine) 1 drop PRN Q4HRS PRN SL SECRETIONS; Start at 19:30 Magnesium Hydroxide (Milk Of Magnesia) 2,400 mg PRN DAILY PRN PO CONSTIPATION; Start 03/26/19 at 20:42 Active Scripts Active Reported Morphine Sulfate 20 Mg/1 Ml Syringe 1 Mg PO PRN Q30MIN PRN Voltaren (Diclofenac Sodium) 100 Gm Gel..gram. 2 Gm TP PRN Q4HRS PRN Nystatin 1 Each Powder.ea. 1 Each MC PRN Q8HRS PRN Morphine Sulfate 100 Mg/5 Ml Solution 0.5 Mg PO PRN Q30MIN PRN Muscle Rub Cream (Methyl Salicylate/Menthol) 113 Gm Cream..g. 113 Gm TP HS Lorazepam Intensol (Lorazepam) 2 Mg/1 Ml Oral.conc 0.5 Mg PO PRN Q4HRS PRN FENTANYL 100mcg/hr (Fentanyl) 1 Each Patch.td72 1 Patch TD Q72H Dulcolax (Bisacodyl) 5 Mg Tablet.dr 5 Mg CA PRN DAILY PRN Atropine Sulfate 2 Ml Drops 2 Ml PO PRN Q4HRS PRN Tylenol (Acetaminophen) 325 Mg Tablet 650 Mg PO PRN Q4HRS PRN Tylenol (Acetaminophen) 325 Mg Tablet 650 Mg CA PRN Q4HRS PRN Milk Of Magnesia (Magnesium Hydroxide) 400 Mg/5 Ml Oral.susp 30 Mg PO DAILY PRN Diazepam 5 Mg Tablet 2.5 Mg PO HS Bisacodyl 10 Mg Supp.rect 10 Mg RC PRN DAILY PRN Vitals/I & O Vital Sign - Last 24 Hours 03/27/19 03/27/19 03/27/19 03/27/19 15:00 18:05 19:00 19:30 Temp 98.4 97.7 98.4 97.7 Pulse 76 63 Resp 16 16 B/P (MAP) 121/44 (69) 131/51 (77) Pulse Ox 95 94 O2 Delivery Room Air Room Air Room Air Room Air 03/27/19 03/27/19 03/28/19 03/28/19 23:00 23:18 03:00 05:53 Temp 98.1 98.9 98.1 98.9 Pulse 78 83 Resp 16 18 16 16 B/P (MAP) 118/48 (71) 116/43 (67) Pulse Ox 95 98 O2 Delivery Room Air Room Air Room Air Room Air 03/28/19 03/28/19 03/28/19 03/28/19 06:56 07:00 08:00 09:45 Temp 98.2 98.2 Pulse 61 Resp 14 18 B/P (MAP) 124/52 (76) Pulse Ox 95 O2 Delivery Room Air Room Air Room Air Room Air 03/28/19 11:00 Temp 97.9 97.9 Pulse 72 Resp 17 B/P (MAP) 108/42 (64) Pulse Ox 98 O2 Delivery Room Air Intake and Output 03/27/19 03/27/19 03/28/19 15:00 23:00 07:00 Intake Total 70 ml 240 ml 210 ml Output Total 300 ml Balance 70 ml -60 ml 210 ml NICOLASA FRANCO MD March 28, 2019 11:48
--- NOTE | 2019-03-28 13:53 | CONS ---
DATE OF CONSULTATION: 03/26/2019 ORTHOPEDIC CONSULTATION REQUESTING PHYSICIAN: Dr. De La Rosa from the Emergency Department and Dr. Hunter Peacock. REASON FOR CONSULTATION: Left distal femur fracture. HISTORY OF PRESENT ILLNESS: The patient is an 88-year-old female who is nonambulatory and bedridden with severe contractures and was apparently found on the floor at her facility. It was reported that she had tried to get up and walk; however, that seems somewhat unlikely due to the degree of her contractures. PAST MEDICAL HISTORY: Significant for type 2 diabetes, hypertension, anxiety and depression. FAMILY HISTORY: Apparently, there is family history of diabetes. REVIEW OF SYSTEMS: Unobtainable due to her relative sedation. SOCIAL HISTORY: She is in a nursing facility. No tobacco, alcohol or drug use. PHYSICAL EXAMINATION: On examination of the lower extremities, she holds the left hip in a very contracted position and it is crossed across the midline of her body. Knee, likewise, has a significant flexion contracture crossing over the other leg. She has pain with any attempted range of motion of the left hip or left knee. No tenderness on palpation over the right hip, knee or either ankle. IMAGING STUDIES: CT of the pelvis show some subluxation of the left hip and plain x-rays show an oblique, minimally displaced and overall acceptably aligned fracture of the distal femur. She has a significant bony demineralization throughout. IMPRESSION: 1. Bedridden and immobile with severe contractures. 2. Left distal femur fracture. 3. Left hip subluxation. TREATMENT PLAN: Given her lack of mobility and position of relative comfort with the contractures anyway, I do not see usefulness of any operative intervention of her distal femur fracture, particularly since the hip would not support ambulation anyway, particularly with the significant contractures that she has. Therefore, I think nonoperative treatment and symptomatic pain relief and keeping her in a position of comfort with support of the leg is most reasonable and I would otherwise be happy to follow along from Orthopedic standpoint. I think any casting would be potential of the severe skin problem due to her contractures and I do not feel that there will be any additional utility of bracing given her very limited mobility, although that can be reconsidered as her care advances. NOAH SOMMER MD DR: KEVEN/gopal JOB#: [id number] / [id number]
[2019-03-28 15:00] VITALS: BP 112/44
[2019-03-28 19:00] VITALS: BP 120/63
[2019-03-28] MEDS: ENOXAPARIN 30 MG/0.3 ML SYRINGE. SQ SCH (19:31)
[2019-03-28] MEDS: ACETAMINOPHEN 325 MG TABLET. PO PRN (21:02)
[2019-03-28] MEDS: diazePAM 5 MG TABLET PO SCH (21:02)
[2019-03-28] MEDS: METHYL SALICYLATE/MENTHOL TOPICAL OINTMENT 29GM TUBE. TP SCH (21:03)
[2019-03-28 23:00] VITALS: BP 130/36
[2019-03-29 03:00] VITALS: BP 150/60
[2019-03-29 06:02] LABS: BASO # 0.1 x10^3/uL (0.0-0.2); BASO % 1 % (0-3); EOS # 0.2 x10^3/uL (0.0-0.7); EOS % 3 % (0-3); LYMPH # 1.5 x10^3/uL (1.0-4.8); LYMPH % 22 % (24-48); MEAN CORPUSCULAR HEMOGLOBIN 31 pg (25-35); MEAN CORPUSCULAR HGB CONC 34 g/dL (31-37); MEAN CORPUSCULAR VOLUME 91 fL (79-100); MONO # 0.6 x10^3/uL (0.0-1.1); MONO % 10 % (0-9); NEUT # 4.2 x10^3uL (1.8-7.7); NEUT % 64 % (31-73); PLATELET COUNT 98 x10^3/uL (140-400); RED BLOOD COUNT 2.29 x10^6/uL (3.50-5.40); RED CELL DISTRIBUTION WIDTH 16.2 % (11.5-14.5); WHITE BLOOD COUNT 6.6 x10^3/uL (4.0-11.0)
[2019-03-29 06:08] LABS: CALCIUM 8.1 mg/dL (8.5-10.1); CREATININE 0.9 mg/dL (0.6-1.0); POTASSIUM 3.8 mmol/L (3.5-5.1)
[2019-03-29] MEDS: MORPHINE SULFATE 20 MG/ML CONC SOLUTION. SL PRN ×4 (06:29→21:28)
[2019-03-29 06:45] LABS: HEMATOCRIT 20.9 % (36.0-47.0)
[2019-03-29 07:00] VITALS: BP 116/23
[2019-03-29] MEDS: INSULIN LISPRO 300 UNITS/3 ML INSULN.PEN. SQ SCH ×3 (07:57→17:00)
[2019-03-29] MEDS ORDERED: fentaNYL 100MCG/HR PATCH 1 PATCH PATCH TD SCH (09:00)
[2019-03-29 11:00] VITALS: BP 108/35
[2019-03-29] MEDS: LORazepam INTENSOL 2 MG/ML ORAL.CONC SL PRN ×2 (13:12→22:01)
--- NOTE | 2019-03-29 13:21 | PDOC ---
PROGRESS NOTES Chief Complaint Chief Complaint distal right femur fracture demenait weakness, debility contractures, prob prior CVA 1. Demineralization. 2. Mildly displaced and angulated distal femoral fracture. 3. Anemia, probably dilutional under hospice care to [facility] when they can accept over weekend History of Present Illness History of Present Illness nooperative fx PAIN CONTROL, BEDREST DVT PROPHYLAXIS Vitals Vitals Vital Signs Date Time Temp Pulse Resp B/P (MAP) Pulse Ox O2 Delivery O2 Flow Rate FiO2 03/29/19 11:00 97.8 57 16 108/35 (59) 96 Room Air 97.8 Physical Exam General: Cooperative, mild distress Lungs: Clear Abdomen: Normal bowel sounds, Soft, No tenderness Extremities: No cyanosis Skin: No significant lesion Labs LABS Laboratory Tests Test 03/28/19 16:44 03/28/19 20:40 03/29/19 05:50 03/29/19 07:45 Glucose (Fingerstick) 122 mg/dL (70-99) 141 mg/dL (70-99) 95 mg/dL (70-99) White Blood Count 6.6 x10^3/uL (4.0-11.0) Red Blood Count 2.29 x10^6/uL (3.50-5.40) Hemoglobin 7.0 g/dL (12.0-15.5) Hematocrit 20.9 % (36.0-47.0) Mean Corpuscular Volume 91 fL (79-100) Mean Corpuscular Hemoglobin 31 pg (25-35) Mean Corpuscular Hemoglobin Concent 34 g/dL (31-37) Red Cell Distribution Width 16.2 % (11.5-14.5) Platelet Count 98 x10^3/uL (140-400) Neutrophils (%) (Auto) 64 % (31-73) Lymphocytes (%) (Auto) 22 % (24-48) Monocytes (%) (Auto) 10 % (0-9) Eosinophils (%) (Auto) 3 % (0-3) Basophils (%) (Auto) 1 % (0-3) Neutrophils # (Auto) 4.2 x10^3uL (1.8-7.7) Lymphocytes # (Auto) 1.5 x10^3/uL (1.0-4.8) Monocytes # (Auto) 0.6 x10^3/uL (0.0-1.1) Eosinophils # (Auto) 0.2 x10^3/uL (0.0-0.7) Basophils # (Auto) 0.1 x10^3/uL (0.0-0.2) Sodium Level 143 mmol/L (136-145) Potassium Level 3.8 mmol/L (3.5-5.1) Chloride Level 109 mmol/L (98-107) Carbon Dioxide Level 28 mmol/L (21-32) Anion Gap 6 (6-14) Blood Urea Nitrogen 37 mg/dL (7-20) Creatinine 0.9 mg/dL (0.6-1.0) Estimated GFR (Cockcroft-Gault) 59.0 Glucose Level 102 mg/dL (70-99) Calcium Level 8.1 mg/dL (8.5-10.1) Test 03/29/19 11:32 Glucose (Fingerstick) 213 mg/dL (70-99) Assessment and Plan Assessmemt and Plan Problems Medical Problems: (1) Closed fracture of right distal femur Status: Acute Comment Review of Relevant I have reviewed the following items malaika (where applicable) has been applied. Labs Laboratory Tests Test 03/27/19 16:43 03/27/19 20:53 03/28/19 05:55 03/28/19 07:10 Glucose (Fingerstick) 140 mg/dL (70-99) 158 mg/dL (70-99) 114 mg/dL (70-99) White Blood Count 8.9 x10^3/uL (4.0-11.0) Red Blood Count 2.76 x10^6/uL (3.50-5.40) Hemoglobin 8.3 g/dL (12.0-15.5) Hematocrit 25.1 % (36.0-47.0) Mean Corpuscular Volume 91 fL (79-100) Mean Corpuscular Hemoglobin 30 pg (25-35) Mean Corpuscular Hemoglobin Concent 33 g/dL (31-37) Red Cell Distribution Width 16.6 % (11.5-14.5) Platelet Count 99 x10^3/uL (140-400) Neutrophils (%) (Auto) 66 % (31-73) Lymphocytes (%) (Auto) 22 % (24-48) Monocytes (%) (Auto) 10 % (0-9) Eosinophils (%) (Auto) 1 % (0-3) Basophils (%) (Auto) 1 % (0-3) Neutrophils # (Auto) 5.9 x10^3uL (1.8-7.7) Lymphocytes # (Auto) 2.0 x10^3/uL (1.0-4.8) Monocytes # (Auto) 0.9 x10^3/uL (0.0-1.1) Eosinophils # (Auto) 0.1 x10^3/uL (0.0-0.7) Basophils # (Auto) 0.1 x10^3/uL (0.0-0.2) Sodium Level 144 mmol/L (136-145) Potassium Level 3.9 mmol/L (3.5-5.1) Chloride Level 107 mmol/L (98-107) Carbon Dioxide Level 27 mmol/L (21-32) Anion Gap 10 (6-14) Blood Urea Nitrogen 36 mg/dL (7-20) Creatinine 1.0 mg/dL (0.6-1.0) Estimated GFR (Cockcroft-Gault) 52.2 Glucose Level 111 mg/dL (70-99) Calcium Level 8.6 mg/dL (8.5-10.1) Test 03/28/19 11:03 03/28/19 16:44 03/28/19 20:40 03/29/19 05:50 Glucose (Fingerstick) 95 mg/dL (70-99) 122 mg/dL (70-99) 141 mg/dL (70-99) White Blood Count 6.6 x10^3/uL (4.0-11.0) Red Blood Count 2.29 x10^6/uL (3.50-5.40) Hemoglobin 7.0 g/dL (12.0-15.5) Hematocrit 20.9 % (36.0-47.0) Mean Corpuscular Volume 91 fL (79-100) Mean Corpuscular Hemoglobin 31 pg (25-35) Mean Corpuscular Hemoglobin Concent 34 g/dL (31-37) Red Cell Distribution Width 16.2 % (11.5-14.5) Platelet Count 98 x10^3/uL (140-400) Neutrophils (%) (Auto) 64 % (31-73) Lymphocytes (%) (Auto) 22 % (24-48) Monocytes (%) (Auto) 10 % (0-9) Eosinophils (%) (Auto) 3 % (0-3) Basophils (%) (Auto) 1 % (0-3) Neutrophils # (Auto) 4.2 x10^3uL (1.8-7.7) Lymphocytes # (Auto) 1.5 x10^3/uL (1.0-4.8) Monocytes # (Auto) 0.6 x10^3/uL (0.0-1.1) Eosinophils # (Auto) 0.2 x10^3/uL (0.0-0.7) Basophils # (Auto) 0.1 x10^3/uL (0.0-0.2) Sodium Level 143 mmol/L (136-145) Potassium Level 3.8 mmol/L (3.5-5.1) Chloride Level 109 mmol/L (98-107) Carbon Dioxide Level 28 mmol/L (21-32) Anion Gap 6 (6-14) Blood Urea Nitrogen 37 mg/dL (7-20) Creatinine 0.9 mg/dL (0.6-1.0) Estimated GFR (Cockcroft-Gault) 59.0 Glucose Level 102 mg/dL (70-99) Calcium Level 8.1 mg/dL (8.5-10.1) Test 03/29/19 07:45 03/29/19 11:32 Glucose (Fingerstick) 95 mg/dL (70-99) 213 mg/dL (70-99) Laboratory Tests Test 03/28/19 16:44 03/28/19 20:40 03/29/19 05:50 03/29/19 07:45 Glucose (Fingerstick) 122 mg/dL (70-99) 141 mg/dL (70-99) 95 mg/dL (70-99) White Blood Count 6.6 x10^3/uL (4.0-11.0) Red Blood Count 2.29 x10^6/uL (3.50-5.40) Hemoglobin 7.0 g/dL (12.0-15.5) Hematocrit 20.9 % (36.0-47.0) Mean Corpuscular Volume 91 fL (79-100) Mean Corpuscular Hemoglobin 31 pg (25-35) Mean Corpuscular Hemoglobin Concent 34 g/dL (31-37) Red Cell Distribution Width 16.2 % (11.5-14.5) Platelet Count 98 x10^3/uL (140-400) Neutrophils (%) (Auto) 64 % (31-73) Lymphocytes (%) (Auto) 22 % (24-48) Monocytes (%) (Auto) 10 % (0-9) Eosinophils (%) (Auto) 3 % (0-3) Basophils (%) (Auto) 1 % (0-3) Neutrophils # (Auto) 4.2 x10^3uL (1.8-7.7) Lymphocytes # (Auto) 1.5 x10^3/uL (1.0-4.8) Monocytes # (Auto) 0.6 x10^3/uL (0.0-1.1) Eosinophils # (Auto) 0.2 x10^3/uL (0.0-0.7) Basophils # (Auto) 0.1 x10^3/uL (0.0-0.2) Sodium Level 143 mmol/L (136-145) Potassium Level 3.8 mmol/L (3.5-5.1) Chloride Level 109 mmol/L (98-107) Carbon Dioxide Level 28 mmol/L (21-32) Anion Gap 6 (6-14) Blood Urea Nitrogen 37 mg/dL (7-20) Creatinine 0.9 mg/dL (0.6-1.0) Estimated GFR (Cockcroft-Gault) 59.0 Glucose Level 102 mg/dL (70-99) Calcium Level 8.1 mg/dL (8.5-10.1) Test 03/29/19 11:32 Glucose (Fingerstick) 213 mg/dL (70-99) Medications Current Medications Ondansetron HCl (Zofran) 4 mg PRN Q8HRS PRN IV NAUSEA/VOMITING; Start 03/26/19 at 13:45; Stop 03/27/19 at 13:44; Status DC Fentanyl Citrate (Fentanyl 2ml Vial) 25 mcg Q2HR PRN IV PAIN; Start 03/26/19 at 13:45; Stop 03/26/19 at 13:45; Status DC Fentanyl Citrate (Fentanyl 2ml Vial) 25 mcg PRN Q2HR PRN IV PAIN Last administered on 03/26/19at 18:39; Start 03/26/19 at 13:45 Insulin Human Lispro (HumaLOG) 0-5 UNITS TIDWMEALS SQ ; Start 03/26/19 at 17:00 Dextrose (Dextrose 50%-Water Syringe) 12.5 gm PRN Q15MIN PRN IV SEE COMMENTS; Start 03/26/19 at 14:15 Acetaminophen (Tylenol) 650 mg PRN Q4HRS PRN PO mild pain/temp Last administe red on 03/28/19at 21:02; Start 03/26/19 at 18:15 Acetaminophen (Tylenol) 650 mg PRN Q4HRS PRN PO FEVER; Start 03/26/19 at 18:15; Status UNV Bisacodyl (Dulcolax Tab) 5 mg PRN DAILY PRN PO CONSTIPATION; Start 03/26/19 at 18:15 Diazepam (Valium) 2.5 mg HS PO Last administered on 03/28/19at 21:02; Start 03/26/19 at 21:00 Diclofenac Sodium (Voltaren) 2 scottie PRN Q4HRS PRN TP PAIN; Start 03/26/19 at 18:15 Magnesium Hydroxide (Milk Of Magnesia) 30 mg PRN DAILY PRN PO CONSTIPATION; Start 03/26/19 at 18:15; Stop 03/26/19 at 20:42; Status DC Atropine Sulfate (Isopto Atropine) 1 drop PRN Q4HRS PRN SL SECRETIONS; Start 03/26/19 at 19:15; Status Cancel Bisacodyl (Dulcolax Supp) 10 mg PRN DAILY PRN AL CONSTIPATION; Start 03/26/19 at 19:15 Non-Formulary Medication (Fentanyl (FENTANYL 100mcg/ hr)) 1 patch Q72H TD ; Start 03/26/19 at 18:15; Stop 03/26/19 at 20:42; Status DC Lorazepam (Ativan Intensol) 0.5 mg PRN Q4HRS PRN SL ANXIETY / AGITATION; Start 03/26/19 at 19:15 Multi-Ingredient Ointment (Analgesic [place]) 1 scottie QHS TP Last administered on 03/28/19at 21:03; Start 03/26/19 at 21:00 Morphine Sulfate (Roxanol Conc) 5 mg PRN Q30MIN PRN SL MODERATE PAIN; Start 03/26/19 at 20:45 Morphine Sulfate (Roxanol Conc) 10 mg PRN Q30MIN PRN SL SEVERE PAIN Last administered on 03/29/19at 08:28; Start 03/26/19 at 20:45 Nystatin (Nystop) 1 scottie PRN Q8HRS PRN TP REDNESS UNDER ABDOMINAL FOLDS Last administered on 03/28/19at 17:42; Start 03/26/19 at 21:00 Enoxaparin Sodium (Lovenox 30mg Syringe) 30 mg Q24H SQ Last administered on 03/28/19at 19:31; Start 03/26/19 at 19:00 Fentanyl (Duragesic 100mcg/Hr Patch) 1 patch Q3DAYS TD Last administered on 03/29/19at 08:27; Start 03/29/19 at 09:00 Atropine Sulfate (Isopto Atropine) 1 drop PRN Q4HRS PRN SL SECRETIONS; Start 03/26/19 at 19:30 Magnesium Hydroxide (Milk Of Magnesia) 2,400 mg PRN DAILY PRN PO CONSTIPATION; Start 03/26/19 at 20:42 Active Scripts Active Reported Morphine Sulfate 20 Mg/1 Ml Syringe 1 Mg PO PRN Q30MIN PRN Voltaren (Diclofenac Sodium) 100 Gm Gel..gram. 2 Gm TP PRN Q4HRS PRN Nystatin 1 Each Powder.ea. 1 Each MC PRN Q8HRS PRN Morphine Sulfate 100 Mg/5 Ml Solution 0.5 Mg PO PRN Q30MIN PRN Muscle Rub Cream (Methyl Salicylate/Menthol) 113 Gm Cream..g. 113 Gm TP HS Lorazepam Intensol (Lorazepam) 2 Mg/1 Ml Oral.conc 0.5 Mg PO PRN Q4HRS PRN FENTANYL 100mcg/hr (Fentanyl) 1 Each Patch.td72 1 Patch TD Q72H Dulcolax (Bisacodyl) 5 Mg Tablet.dr 5 Mg AL PRN DAILY PRN Atropine Sulfate 2 Ml Drops 2 Ml PO PRN Q4HRS PRN Tylenol (Acetaminophen) 325 Mg Tablet 650 Mg PO PRN Q4HRS PRN Tylenol (Acetaminophen) 325 Mg Tablet 650 Mg AL PRN Q4HRS PRN Milk Of Magnesia (Magnesium Hydroxide) 400 Mg/5 Ml Oral.susp 30 Mg PO DAILY PRN Diazepam 5 Mg Tablet 2.5 Mg PO HS Bisacodyl 10 Mg Supp.rect 10 Mg RC PRN DAILY PRN Vitals/I & O Vital Sign - Last 24 Hours 03/28/19 03/28/19 03/28/19 03/28/19 15:00 17:42 19:00 19:30 Temp 97.7 100.1 97.7 100.1 Pulse 68 73 Resp 17 17 B/P (MAP) 112/44 (66) 120/63 (82) Pulse Ox 94 95 O2 Delivery Room Air Room Air Room Air Room Air 03/28/19 03/28/19 03/28/19 03/28/19 21:03 22:11 22:53 23:00 Temp 99.9 99.9 Pulse 75 Resp 18 16 16 17 B/P (MAP) 130/36 (67) Pulse Ox 94 O2 Delivery Room Air Room Air Room Air Room Air 03/28/19 03/29/19 03/29/19 03/29/19 23:54 03:00 06:29 07:00 Temp 98.0 98.1 98.0 98.1 Pulse 57 65 Resp 16 17 18 B/P (MAP) 150/60 (90) 116/23 (54) Pulse Ox 95 98 O2 Delivery Room Air Room Air Room Air 03/29/19 03/29/19 03/29/19 03/29/19 07:53 08:27 08:28 09:30 O2 Delivery Room Air Room Air Room Air Room Air 03/29/19 11:00 Temp 97.8 97.8 Pulse 57 Resp 16 B/P (MAP) 108/35 (59) Pulse Ox 96 O2 Delivery Room Air Intake and Output 03/28/19 03/28/19 03/29/19 15:00 23:00 07:00 Intake Total 50 ml 120 ml 360 ml Output Total 0 ml Balance 50 ml 120 ml 360 ml DUDLEY CURTIS MD March 29, 2019 13:21
[2019-03-29 15:00] VITALS: BP 114/36
[2019-03-29] MEDS: ENOXAPARIN 30 MG/0.3 ML SYRINGE. SQ SCH (17:01)
[2019-03-29 19:00] VITALS: BP_SYST 115; BP_SYST 86; BP_DIAS 37; BP_DIAS 50
[2019-03-29] MEDS: ACETAMINOPHEN 325 MG TABLET. PO PRN (21:27)
[2019-03-29] MEDS: diazePAM 5 MG TABLET PO SCH (21:28)
[2019-03-29] MEDS: METHYL SALICYLATE/MENTHOL TOPICAL OINTMENT 29GM TUBE. TP SCH (21:29)
--- NOTE | 2019-03-29 23:30 | NUR ---
Pt refused for vitals to be taken at this time and scheduled turn, resting in bed and will continue to monitor.
[2019-03-30] MEDS: MORPHINE SULFATE 20 MG/ML CONC SOLUTION. SL PRN ×5 (02:16→19:37)
[2019-03-30 03:00] VITALS: BP 132/55
[2019-03-30 07:00] VITALS: BP 107/41
[2019-03-30] MEDS: INSULIN LISPRO 300 UNITS/3 ML INSULN.PEN. SQ SCH ×3 (08:00→17:00)
--- NOTE | 2019-03-30 09:00 | NUR ---
Discharge orders entered at this time by the Hospitalist. Discharge cannot be completed within the next hour because SS started the process this morning to contact the facility where Pt came from and also contact family in order to check Hospice providers of choice.
--- NOTE | 2019-03-30 09:05 | SNU/HH DC ---
DISCHARGE ORDERS DISCHARGE INFORMATION: DISCHARGE DATE: March 30, 2019 FINAL DIAGNOSIS Problems Medical Problems: (1) Closed fracture of right distal femur Status: Acute CONDITION ON DISCHARGE: Stable HOSPICE: HOSPICE: Yes HOSPICE EVAL & TREAT: Yes POST DISCHARGE ORDERS: ACTIVITY ORDERS: Resume previous activity WEIGHT BEARING STATUS: As tolerated BATHING ORDERS: No Tub Bath until see DIET AFTER DISCHARGE: as tolerated WOUND/INCISION CARE: Keep wound/cast CDI, Change dressing FOLLOW-UP: PHYSICIAN FOLLOW-UP: none TREATMENT/EQUIPMENT ORDERS: ADAPTIVE EQUIPMENT NEEDED: Wheelchair DISCHARGE MEDICATIONS: Home Meds Reported Medications Morphine Sulfate (Morphine Sulfate) 20 Mg/1 Ml Syringe, 1 MG PO PRN Q30MIN PRN for PAIN, SYR 03/26/19 Diclofenac Sodium (VOLTAREN) 100 Gm Gel..gram., 2 GM TP PRN Q4HRS PRN for PAIN, #100 GM 2 Refills 03/26/19 Nystatin (NYSTATIN) 1 Each Powder.ea., 1 EACH MC PRN Q8HRS PRN for Redness under Abd folds, EACH 03/26/19 Morphine Sulfate (MORPHINE SULFATE) 100 Mg/5 Ml Solution, 0.5 MG PO PRN Q30MIN PRN for PAIN, MISC 03/26/19 Methyl Salicylate/Menthol (MUSCLE RUB CREAM) 113 Gm Cream..g., 113 GM TP HS for Left Knee Muscle Spasms, EACH 03/26/19 Lorazepam (LORAZEPAM INTENSOL) 2 Mg/1 Ml Oral.conc, 0.5 MG PO PRN Q4HRS PRN for PAIN, MISC 03/26/19 Fentanyl (FENTANYL 100mcg/hr) 1 Each Patch.td72, 1 PATCH TD Q72H for pain, PATCH 03/26/19 Bisacodyl (DULCOLAX) 5 Mg Tablet.dr, 5 MG KS PRN DAILY PRN for CONSTIPATION, TAB 0 Refills 03/26/19 Atropine Sulfate (Atropine Sulfate) 2 Ml Drops, 2 ML PO PRN Q4HRS PRN for Secretions, DROP 03/26/19 Acetaminophen (TYLENOL) 325 Mg Tablet, 650 MG PO PRN Q4HRS PRN for mild pain/temp, TAB 03/26/19 Acetaminophen (TYLENOL) 325 Mg Tablet, 650 MG KS PRN Q4HRS PRN for FEVER, TAB 03/26/19 Magnesium Hydroxide (MILK OF MAGNESIA) 400 Mg/5 Ml Oral.susp, 30 MG PO DAILY PRN for CONSTIPATION 03/10/15 Diazepam (DIAZEPAM) 5 Mg Tablet, 2.5 MG PO HS, TAB 03/10/15 Bisacodyl (BISACODYL) 10 Mg Supp.rect, 10 MG RC PRN DAILY PRN for CONSTIPATION, SUPP.RECT 0 Refills 03/10/15 Discontinued Reported Medications Tramadol Hcl (TRAMADOL HCL) 50 Mg Tablet, 1 TAB PO TID, #90 TAB 03/10/15 Sertraline Hcl (SERTRALINE HCL) 50 Mg Tablet, 150 MG PO HS for ANTI-DEPRESSANT, TAB 0 Refills 03/10/15 Prednisone (PREDNISONE ) 10 Mg Tablet, 10 MG PO DAILY, TAB 03/10/15 Pravastatin Sodium (PRAVASTATIN SODIUM) 40 Mg Tablet, 1 TAB PO DAILY, #90 TAB 1 Refill 03/10/15 Potassium Chloride (POTASSIUM CHLORIDE) 10 Meq Tab.er.prt, 0.5 TAB PO DAILY, #30 TAB 5 Refills 03/10/15 Pantoprazole Sodium (PANTOPRAZOLE SODIUM) 40 Mg Tablet.dr, 1 TAB PO DAILY, #30 TAB 3 Refills 03/10/15 Mag Hydrox/Al Hydrox/Simeth (MINTOX PLUS TABLET CHEWABLE) 1 Each Tab.chew, 2 EACH PO, TAB.CHEW 03/10/15 Lisinopril (LISINOPRIL) 5 Mg Tablet, 1 TAB PO DAILY, #30 TAB 5 Refills 03/10/15 Furosemide (LASIX) 20 Mg Tablet, 0.5 TAB PO DAILY, #90 TAB 1 Refill 03/10/15 Insulin Aspart (NOVOLOG) 100 Unit/1 Ml Cartridge, 2-8 UNIT SQ TIDWMEALHC, EACH 03/10/15 Hydrocodone Bit/Acetaminophen (HYDROCODONE-APAP 5-325 ) 1 Each Tablet, 1 TAB PO Q8HRS PRN for PAIN, TAB 0 Refills 03/10/15 Glipizide (GLIPIZIDE) 5 Mg Tablet, 1 TAB PO BID, #180 TAB 3 Refills 03/10/15 Gabapentin (GABAPENTIN ) 300 Mg Capsule, 1 CAP PO TID, #90 CAP 3 Refills 03/10/15 Ipratropium/Albuterol Sulfate (DUONEB 0.5-3(2.5) MG/3 ML) 3 Ml Ampul.neb, 3 ML IH Q8HRS PRN for WHEEZING 03/10/15 Dabigatran Etexilate Mesylate (PRADAXA) 150 Mg Capsule, 1 CAP PO BID, #180 CAP 3 Refills 03/10/15 Clonidine (CLONIDINE TTS-1) 1 Each Patch.tdwk, 1 PATCH TD WEEKLY, PATCH 03/10/15 Ciprofloxacin Hcl (CIPRO) 500 Mg Tablet, 1 TAB PO BID, #20 TAB 03/10/15 Baclofen (BACLOFEN) 10 Mg Tablet, 1 TAB PO TID, #90 TAB 03/10/15 Aspirin (ASPIRIN) 325 Mg Tablet, 1 TAB PO DAILY, #90 TAB 3 Refills 03/10/15 Acetylcysteine (M-ZZNITP-I-CYSTEINE) 600 Mg Capsule, 1200 MG PO BID 03/10/15 Acetaminophen (TYLENOL) 325 Mg Tablet, 1-2 TAB PO QID PRN for PAIN, #60 TAB 2 Refills 03/10/15 DUDLEY CURTIS MD March 30, 2019 09:05
[2019-03-30 11:00] VITALS: BP 114/39
--- NOTE | 2019-03-30 12:16 | PDOC2 ---
PALLIATIVE CARE Palliative Care Note Palliative Care Consult requested by Dr. Watters to address return to retirement with hospice. Medical assessment and plan per orthopedic surgeon and Dr. Watters. IMAGING STUDIES: CT of the pelvis show some subluxation of the left hip and plain x-rays show an oblique, minimally displaced and overall acceptably aligned fracture of the distal femur. She has a significant bony demineralization throughout. Orthopedic Assessment and plan. IMPRESSION: 1. Bedridden and immobile with severe contractures. 2. Left distal femur fracture. 3. Left hip subluxation. TREATMENT PLAN: Given her lack of mobility and position of relative comfort with the contractures anyway, I do not see usefulness of any operative intervention of her distal femur fracture, particularly since the hip would not support ambulation anyway, particularly with the significant contractures that she has. Therefore, I think nonoperative treatment and symptomatic pain relief and keeping her in a position of comfort with support of the leg is most reasonable and I would otherwise be happy to follow along from Orthopedic standpoint. I think any casting would be potential of the severe skin problem due to her contractures and I do not feel that there will be any additional utility of bracing given her very limited mobility, although that can be reconsidered as her care advances. Patient was with [facility]. Spoke to the [facility]. LIZ. No surgical intervention planned. Louise HILL has spoke with daughter. Plan is return back to facility with [facility]. Medicate for pain prio r to moving. Outside the Hospital DNR/DNI form signed by physician. JORDYN SANCHEZ March 30, 2019 12:16
--- NOTE | 2019-03-30 12:31 | NUR ---
LIZ following for discharge planning. Discussed with RN, pt is from [facility] (ph: [phone], fax: [phone]) with [facility]. LIZ contacted Lashaunfrank/stacey ([phone] or [phone]) to confirm she wanted pt to return to [facility] on hospice, Lashaun is agreeable. LIZ [facility], SW awaiting transportation time. Addendum: 03/30/19 at 1425 by FAREED HILL Pt will be transported by stretcher (set up by [facility] and [facility]) between [id number]. RN notifying family of transportation time.
[2019-03-30 15:00] VITALS: BP 116/31
[2019-03-30] MEDS: ENOXAPARIN 30 MG/0.3 ML SYRINGE. SQ SCH (18:33)
[2019-03-30 19:00] VITALS: BP 129/51
--- NOTE | 2019-03-30 20:30 | NUR ---
Discharge cannot proceed today. Transportation staff sent by receiving facility arrived to hospital and waited for an hour here while nursing staff had all patients on the hallways d/t severe weather warning. After the wait, transportation notified this RN that transport was cancelled and it will have to be rescheduled by receiving facility tomorrow. [facility] and Pt's family informed of change of plans. Discharge to proceed tomorrow.
[2019-03-30] MEDS: METHYL SALICYLATE/MENTHOL TOPICAL OINTMENT 29GM TUBE. TP SCH (21:00)
[2019-03-30] MEDS: diazePAM 5 MG TABLET PO SCH (21:53)
[2019-03-30 23:00] VITALS: BP 126/49
[2019-03-31 03:00] VITALS: BP 114/44
[2019-03-31 07:00] VITALS: BP 126/45
[2019-03-31] MEDS: INSULIN LISPRO 300 UNITS/3 ML INSULN.PEN. SQ SCH (08:00)
--- NOTE | 2019-03-31 08:08 | NUR ---
SW following for discharge planning. 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 RN notified.
[2019-03-31] MEDS ORDERED: FENT1PAT21 TD (08:50)
[2019-03-31] MEDS: MORPHINE SULFATE 20 MG/ML CONC SOLUTION. SL PRN (09:26)
--- NOTE | 2019-03-31 09:34 | NUR ---
Pt was discharged to [facility] with [facility] at 09 in stable condition with all personal belongings. Report already called in on 03/30, packet given to facility transportation personnel, pt transported via gurney to [facility]
== END 2019-03-31 09:30 | disposition hospice, inpatient (51) | DRG 533 ==
LOC: ER 10:51 → 4 NORTH 12:39
PROVIDERS: ADMIT Family Medicine; ATTEND Family Medicine
DX: S72.402A Unspecified fracture of lower end of left femur, initial encounter for closed fracture (principal); R53.2 Functional quadriplegia; S73.002A Unspecified subluxation of left hip, initial encounter; I10 Essential (primary) hypertension; E11.9 Type 2 diabetes mellitus without complications; F41.9 Anxiety disorder, unspecified; Z66 Do not resuscitate; X58.XXXA Exposure to other specified factors, initial encounter; D64.9 Anemia, unspecified; F32.9 Major depressive disorder, single episode, unspecified; Z51.5 Encounter for palliative care; Z86.73 Personal history of transient ischemic attack (TIA), and cerebral infarction without residual deficits; Z83.3 Family history of diabetes mellitus; Z74.01 Bed confinement status; Y93.89 Activity, other specified; Y92.89 Other specified places as the place of occurrence of the external cause; Y99.8 Other external cause status
CPT/HCPCS: 36415; 71045; 72192; 73562; 80048; 80053; 82553; 82962; 83735; 84484; 85007; 85025; 85610; 85730; 87641; 93005; 96374; J1650; J3010; 99285-25